=== PATIENT | female | born 1955 | race Hispanic/Latino ===

== ENCOUNTER 2020-06-22 13:47 | Emergency (ER) | payer BC, OTHER ==
--- OUTSIDE RECORDS SUMMARY | 2020-06-22 13:49 | XMS REPORT | Continuity of Care Document ---
:1955 Author Organization [facility] t Address [address] [place] [address] Care Team Providers Name Role Phone Jl Turner Attending Clinician Magdalena Barrow Attending Clinician Doctor Unassigned, Name Attending Clinician Unavailable Problems This patient has no known problems. Allergies, Adverse Reactions, Alerts This patient has no known allergies or adverse reactions. Medications This patient has no known medications. Procedures This patient has no known procedures. Encounters Start End Encounter Admission Attending Care Care Encounter Source Date/Time Date/Time Type Type Clinicians Facility Department ID 2019-11-20 2019-11-20 Emergency Kristy Sultana [facility] [id number] 16:43:00 18:25:00 Jose Corona [id number] [place] [id number] [place] [id number] 2019-04-19 2019-04-19 Orders Doctor REYES [id number] 00:00:00 00:00:00 Only TerezassJANE reilly [id number] [place] [id number] Results This patient has no known results.
--- NOTE | 2020-06-22 15:21 | EDPHYS ---
Physician Documentation [facility] Name: Marce Perera Age: 64 yrs Sex: Female : 1955 Arrival Date: 06/22/2020 Time: 13:49 Bed DIS5 Private MD: Juanita Lee ED Physician Keenan Hankins HPI: 06/22 15:17 This 64 yrs old Female presents to ER via Ambulatory with complaints of Skin jmm Problem - on top of right hand. 15:17 The patient or guardian reports swelling. Onset: The symptoms/episode began/occurred jmm gradually, 2 month(s) ago. Modifying factors: The symptoms are alleviated by nothing, the symptoms are aggravated by nothing. Associated signs and symptoms: Pertinent negatives: decreased sensation distally, fever, numbness distally, tingling distally, vomiting. It is unknown whether or not the patient has had similar symptoms in the past. Historical: - Allergies: 13:55 No Known Allergies; aa5 - PMHx: 13:55 Thyroid problem; aa5 - PSHx: 13:55 Cholecystectomy; eye surg to open duct; aa5 - Immunization history:: Adult Immunizations unknown. - Social history:: Smoking status: Patient denies any tobacco usage or history of. ROS: 15:17 Constitutional: Negative for fever, chills, and weight loss, Cardiovascular: Negative jmm for chest pain, palpitations, and edema, Respiratory: Negative for shortness of breath, cough, wheezing, and pleuritic chest pain. 15:17 Skin: Positive for swelling. 15:17 All other systems are negative. Exam: 15:17 Constitutional: This is a well developed, well nourished patient who is awake, alert, jmm and in no acute distress. Head/Face: atraumatic. Eyes: EOMI, no conjunctival erythema appreciated ENT: Moist Mucus Membranes Neck: Trachea midline, Supple Chest/axilla: Normal chest wall appearance and motion. Cardiovascular: Regular rate and rhythm. No edema appreciated Respiratory: Normal respirations, no respiratory distress appreciated Abdomen/GI: Non distended, soft Back: Normal ROM 15:17 Skin: large, hard symmetric mass noted to the dorsal surface of the right hand, no surrounding erythema or purulent drainage appreciated. 15:17 Neuro: Orientation: is normal, Mentation: is normal, Memory: is normal. 15:17 Psych: Behavior/mood is pleasant, cooperative. Vital Signs: 13:55 BP 131 / 79; Pulse 66; Resp 18 S; Temp 98.1(TE); Pulse Ox 99% on R/A; aa5 MDM: 15:11 Patient medically screened. [facility] 15:19 Data reviewed: vital signs, nurses notes. Counseling: I had a detailed discussion with angus the patient and/or guardian regarding: the historical points, exam findings, and any diagnostic results supporting the discharge/admit diagnosis, the need for outpatient follow up, to return to the emergency department if symptoms worsen or persist or if there are any questions or concerns that arise at home. ED course: PE not concerning for infection, Hand is NVI. advised to follow up with hand surgery for further evaluation. Patient understood and agrees with the plan of care. . Administered Medications: No medications were administered Disposition: 16:00 Co-signature as Attending Physician, Keenan Hankins MD. rn Disposition: 06/22/20 15:20 Discharged to Home. Impression: Mass on Hand. - Condition is Stable. - Medication Reconciliation Form, Thank You Letter, Antibiotic Education, Prescription Opioid Use form. - Follow up: Shashank Rodney MD; When: 2 - 3 days; Reason: Recheck today's complaints, Continuance of care, Re-evaluation by your physician. - Notes: Please follow up with hand surgery for further evaluation of the mass on your hand. Please return to the Emergency Department if you develop increased swelling, pain, fever, or any other concerning symptoms. Signatures: Moises Carpenter PA PA [facility] Keenan Hankins MD MD rn Calderon, Audri, RN RN aa5 Corrections: (The following items were deleted from the chart) 15:33 15:20 06/22/2020 15:20 Discharged to Home. Impression: Mass on Hand. Condition is aa5 Stable. Forms are Medication Reconciliation Form, Thank You Letter, Antibiotic Education, Prescription Opioid Use. Follow up: Shashank Rodney; When: 2 - 3 days; Reason: Recheck today's complaints, Continuance of care, Re-evaluation by your physician. [facility]
--- NOTE | 2020-06-22 15:21 | ER ---
Nurse's Notes [facility] Name: Marce Perera Age: 64 yrs Sex: Female : 1955 Arrival Date: 06/22/2020 Time: 13:49 Bed DIS5 Private MD: Juanita Lee Diagnosis: Mass on Hand Presentation: 06/22 13:54 Chief complaint: Patient states: "I've had this wound on my right hand for 2 months and aa5 I am taking antibiotics that my doctor gave me but it's not going away, she told me it was an infected insect bite" Pt was prescribed cephalexin and mupirocin ointment. Coronavirus screen: At this time, the client does not indicate any symptoms associated with coronavirus-19. Ebola Screen: Patient negative for fever greater than or equal to 101.5 degrees Fahrenheit, and additional compatible Ebola Virus Disease symptoms. Initial Sepsis Screen: Does the patient meet any 2 criteria? No. Patient's initial sepsis screen is negative. Does the patient have a suspected source of infection? No. Patient's initial sepsis screen is negative. Risk Assessment: Do you want to hurt yourself or someone else? Patient reports no desire to harm self or others. Onset of symptoms was April 2020. 13:54 Method Of Arrival: Ambulatory aa5 13:54 Acuity: VALDO 4 aa5 Historical: - Allergies: 13:55 No Known Allergies; aa5 - PMHx: 13:55 Thyroid problem; aa5 - PSHx: 13:55 Cholecystectomy; eye surg to open duct; aa5 - Immunization history:: Adult Immunizations unknown. - Social history:: Smoking status: Patient denies any tobacco usage or history of. Screenin:05 Abuse screen: Denies threats or abuse. Denies injuries from another. Nutritional ca1 screening: No deficits noted. Tuberculosis screening: No symptoms or risk factors identified. Fall Risk None identified. Assessment: 15:05 General: Appears in no apparent distress. comfortable, Behavior is calm, cooperative, ca1 appropriate for age. Pain: Complains of pain in dorsum of right hand. Neuro: Level of Consciousness is awake, alert, obeys commands, Oriented to person, place, time, situation. EENT: No signs and/or symptoms were reported regarding the EENT system. Derm: Skin is healthy with good turgor, Skin is pink, warm \\T\\ dry. Wound noted dorsum of right hand. Musculoskeletal: Circulation, motion, and sensation intact. Capillary refill < 3 seconds. 15:33 Reassessment: Patient is alert, oriented x 3, equal unlabored respirations, skin aa5 warm/dry/pink. Vital Signs: 13:55 BP 131 / 79; Pulse 66; Resp 18 S; Temp 98.1(TE); Pulse Ox 99% on R/A; aa5 ED Course: 13:49 Patient arrived in ED. am2 13:50 Juanita Lee is Private Physician. am2 13:55 Triage completed. aa5 13:55 Arm band placed on. aa5 14:59 Patricia Solis, ALEX is Primary Nurse. ca1 15:00 Moises Carpenter PA is PHCP. [facility] 15:00 Keenan Hankins MD is Attending Physician. jmm 15:05 Patient has correct armband on for positive identification. Bed in low position. ca1 15:20 Shashank Rodney MD is Referral Physician. [facility] 15:33 No provider procedures requiring assistance completed. Patient did not have IV access aa5 during this emergency room visit. Administered Medications: No medications were administered Outcome: 15:20 Discharge ordered by MD. [facility] 15:33 Discharged to home ambulatory. aa5 15:33 Condition: stable 15:33 Discharge instructions given to patient, Instructed on discharge instructions, follow up and referral plans. Demonstrated understanding of instructions, follow-up care. 15:33 Patient left the ED. aa5 Signatures: Moises Carpenter PA PA jmm Calderon, Audri, RN RN aa5 Lita Rankin 2 Patricia Solis, ALEX RN ca1 Corrections: (The following items were deleted from the chart) 13:56 13:54 Chief complaint: Patient states: "I've had this wound on my right hand for 2 aa5 months and I am taking antibiotics that my doctor gave me but it's not going away, she told me it was an infected insect bite" aa5
[2020-06-22 15:45] VITALS: BP 131/79; TEMP 98.1; O2SAT 99
== END 2020-06-22 15:33 | disposition home or self-care (01) ==
LOC: ER 13:47
DX: R22.31 Localized swelling, mass and lump, right upper limb (principal)
CPT/HCPCS: 99281

== ENCOUNTER 2020-06-25 09:16 | Day surgery (SDC) | payer OTHER ==
[2020-06-25 09:10] LABS: Urine Appearance CLEAR (Clear); Urine Bilirubin NEGATIVE (Negataive); Urine Blood NEGATIVE (Negative); Urine Color YELLOW (Yellow); Urine Glucose NEGATIVE (Negative); Urine Protein NEGATIVE (Negative); Urine Urobilinogen 0.2 mg/dL (0.2-1.0); Urine pH 6.5 (5.0-7.0)
[2020-06-25 09:11] LABS: Urine Microscopic Reflex NO UMIC
[2020-06-25 09:11] LABS: Basophils % 0.4 % (0-1.3); Hematocrit 40.5 % (36.0-45.0); Lymphocytes % 42.1 % (15.3-44.8); MPV 8.9 fL (7.6-11.3); RBC Red Blood Cell Count 4.08 M/uL (3.86-4.86)
--- NOTE | 2020-06-25 09:47 | RAD REPORT ---
EXAM DESCRIPTION: RAD - Hand Right 3 View - 06/25/2020 9:13 am CLINICAL HISTORY: preop, draining wound dorsum of the hand COMPARISON: No comparisonsNone. FINDINGS: No fracture is identified. There is no dislocation or periosteal reaction noted. No acute bone or joint finding identifiable. Soft tissues over the dorsum of the hand metacarpal level show t hickening. No air or foreign body seen. IMPRESSION: Dorsum right hand soft tissue swelling with no air or foreign body identifiable in the s oft tissues. No acute bone or joint finding.
--- NOTE | 2020-06-25 09:47 | RAD REPORT ---
EXAM DESCRIPTION: RAD - Chest Pa And Lat (2 Views) - 06/25/2020 9:13 am CLINICAL HISTORY: preop, right hand soft tissue wound drainage COMPARISON: Portable April 2014 TECHNIQUE: Frontal and lateral views of the chest were obtained. FINDINGS: The lungs are clear of mass or consolidation. No failure or volume overload. Heart size is normal and central vasculature is within normal limits. No pleural effusion or pneumothorax seen. No acute bony finding noted. No aortic abnormality. IMPRESSION: No acute cardiopulmonary process. No significant change from comparison.
[2020-06-25] MEDS ORDERED: Ringers Lactate 1,000 ML IV ONE (09:56)
[2020-06-25] MEDS ORDERED: CEFAZOLIN/SWI 1gm 1 GM/10 ML SYR ONE (09:56)
[2020-06-25] MEDS ORDERED: FENTANYL CITR 100 MCG/2 ML ONE (11:17)
[2020-06-25] MEDS ORDERED: dexAMETHasone 10 MG/ML VIAL ONE (11:17)
[2020-06-25] MEDS ORDERED: propofoL 200 MG/20 ML VIAL IV ONE (11:17)
[2020-06-25] MEDS ORDERED: MIDAZOLAM HCL 2 MG/2 ML INJ ONE (11:17)
[2020-06-25] MEDS ORDERED: KETOROLAC 30 MG/ML INJ ONE (11:18)
[2020-06-25] MEDS ORDERED: LIDOCAINE 2% MPF 5 ML VIAL ONE (11:18)
[2020-06-25] MEDS ORDERED: ONDANSETRON 4 MG/2 ML VIAL ONE (11:18)
[2020-06-25] MEDS ORDERED: BUPIVACAINE 0.5% PF 10 ML VIAL ONE (12:26)
[2020-06-25 14:08] VITALS: BP 132/76; TEMP 97.5; O2SAT 100
--- NOTE | 2020-06-25 21:29 | OP ---
Surgeon: Shashank Rodney MD Preoperative Diagnosis: Keratoacanthoma of the dorsum right hand. Postoperative Diagnosis: Keratoacanthoma of the dorsum right hand. Procedure Performed: Excision of 4 cm keratoacanthoma of the right dorsal hand. Anesthesia: General. Procedure In Detail: After satisfactory induction of general anesthesia, right hand was prepped with Betadine scrub and paint. Dry sterile drapes were applied in the usual manner. Arm was elevated, e xsanguinated with an Esmarch. Tourniquet was inflated to 250 mmHg. Hand was placed on the Roto Lock table. Elliptical incision was made around the keratoacanthoma with scalpel and electrocautery was used to excise it. Tourniquet was released. Electrocautery was used for hemostasis. Wound was clos ed with 4-0 Prolene vertical mattresses after flaps were undermined and advanced. Dressed with Xerof orm, 2 inch [place]. The patient tolerated the procedure well and returned to Recovery. LIBORIO/REED Voice ID: [id number] Report ID: [id number]
== END 2020-06-25 13:35 | disposition home or self-care (01) ==
LOC: OR 09:16
PROVIDERS: ATTEND Specialist
PROC: 0HBFXZZ Excision of Right Hand Skin, External Approach (ICD-10-PCS; principal; 2020-06-25 11:00)
DX: C44.622 Squamous cell carcinoma of skin of right upper limb, including shoulder (principal); Z20.822 Contact with and (suspected) exposure to COVID-19
CPT/HCPCS: 11622; 85025; 36415; 88305; 81003; 71046; 73130; U0003; J2704; J2250; J3010; J1100; J0690; J7120; J2405

== ENCOUNTER 2020-07-02 08:15 | Day surgery (SDC) | payer OTHER ==
[2020-06-30 09:35] LABS: Absolute Lymphocytes (CBC) 1.8 K/uL (0.7-4.9); Basophils % 0.4 % (0-1.3); Hematocrit 39.6 % (36.0-45.0); Lymphocytes % 32.2 % (15.3-44.8); MPV 8.6 fL (7.6-11.3); RBC Red Blood Cell Count 3.99 M/uL (3.86-4.86)
[2020-07-02] MEDS ORDERED: Ringers Lactate 1,000 ML IV ONE (08:50)
[2020-07-02] MEDS ORDERED: CEFAZOLIN/SWI 1gm 1 GM/10 ML SYR ONE (08:50)
[2020-07-02] MEDS ORDERED: propofoL 200 MG/20 ML VIAL IV ONE (11:11)
[2020-07-02] MEDS ORDERED: MIDAZOLAM HCL 2 MG/2 ML INJ ONE (11:11)
[2020-07-02] MEDS ORDERED: LIDOCAINE 1% MPF 5 ML VIAL ONE (11:11)
[2020-07-02] MEDS ORDERED: FENTANYL CITR 100 MCG/2 ML ONE (11:11)
[2020-07-02] MEDS ORDERED: MINERAL OIL, LITE 10 ML VIAL ONE ×2 (11:17)
[2020-07-02] MEDS ORDERED: KETOROLAC 30 MG/ML INJ ONE (11:37)
[2020-07-02] MEDS ORDERED: dexAMETHasone 10 MG/ML VIAL ONE (11:37)
[2020-07-02] MEDS ORDERED: ONDANSETRON 4 MG/2 ML VIAL ONE (12:07)
[2020-07-02] MEDS ORDERED: Mastisol Adhesive Liq ONE (12:12)
[2020-07-02] MEDS: MORPHINE 4 MG/ML SYR ONE ×2 (12:22→12:29)
[2020-07-02] MEDS ORDERED: HYDROMORPHONE HCL 1 MG/ML INJ ONE (13:07)
[2020-07-02 13:13] VITALS: TEMP 98
[2020-07-02] MEDS ORDERED: CODEINE 30MG/APAP 300MG TAB ONE (13:56)
[2020-07-02 14:37] VITALS: BP 103/59; O2SAT 99
--- NOTE | 2020-07-02 20:58 | OP ---
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 Procedure Performed: Excision of squamous cell carcinoma 5 cm with split-thickness skin graft and sp lint. Anesthesia: General. Procedure In Detail: After satisfactory induction of general anesthesia, right hand and right leg we re prepped with Betadine scrub and paint. Dry sterile drapes were applied in the usual manner. Arm was elevated, exsanguinated with an Esmarch. Tourniquet was inflated to 250 mmHg. Hand was placed o n the Roto Lock table. The previous closure was wide excised taking 1.5 cm radially ulnarly and appr oximately 0.5 cm distally proximally. Skin was incised with scalpel. Electrocautery was used to exc ise. Paratenon was left in place. Tourniquet was released. Electrocautery and 3-0 Vicryl ties were used for hemostasis. Attention was directed to the right side. Skin was harvested . Don or site was covered with Opsite and then the skin graft was sewn in place with 4-0 Prolene . The ends were left long, then tied sponge. Following this, Kerlix and then . The patient tolerated procedure well, returned to Recovery. LIBORIO/REED Voice ID: [id number] Report ID: [id number]
== END 2020-07-02 14:25 | disposition home or self-care (01) ==
LOC: OR 08:15
PROVIDERS: ATTEND Specialist
PROC: 0HBHXZZ Excision of Right Upper Leg Skin, External Approach (ICD-10-PCS; 2020-07-02)
PROC: 0HRFX74 Replacement of Right Hand Skin with Autologous Tissue Substitute, Partial Thickness, External Approach (ICD-10-PCS; principal; 2020-07-02 10:30)
DX: C44.622 Squamous cell carcinoma of skin of right upper limb, including shoulder (principal); Z20.822 Contact with and (suspected) exposure to COVID-19
CPT/HCPCS: 85025; 36415; 88312; 88305; 11626; 15275; U0003; J2704; J2250; J3010; J1100; J1170; J0690; J7120; J2405